=== PATIENT | male | born 1955 | race Caucasian/White ===

== ENCOUNTER 2018-12-14 12:22 | Inpatient (IN) | payer BC ==
[~2018-12-14] VITALS: Ht 188 cm; Wt 107.0 kg
--- NOTE | ~2018-12-14 | CON ---
[address] [address] CONSULTATION Name: JEWEL VELA Room: [address] IN .R.#: [id number] Admission: 12/14/18 Attend Phys: Rex Zendejas MD Discharge: Date of : 59 Report #: [id number] THIS REPORT FOR: //name// CC: Rex Ch MD DATE OF SERVICE: 12/15/2018 ONCOLOGY CONSULT NOTE The patient is being seen in consultation at the request of Dr. Zendejas because he has been shown to have an apple core like lesion in the ascending colon associated with numerous hepatic metastases on a CT scan, and these findings were first found on the CT scan done on 12/14/2018, ordered by Dr. Zendejas. 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 The patient said that he was told to come to the Emergency Room by someone from Dr. Ch's office. 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 The patient reports that over the past few months he has had more problems with constipation, i.e., passing a "rock hard" stool, and he typically has a bowel movement every day or every other day. He has not had any abdominal cramps nor overt bright red blood per rectum nor any melena. His appetite has been good and his weight has been stable. He does have nausea in the mornings, sometimes, but he has not had any vomiting. Importantly, the patient never before had had a colonoscopy. His sister at the age of 46 of colon cancer and it sounds as if she soon after diagnosis was made. No one else in the family has a history of colon cancer as far as he knows and no one has kidney cancer or tumors. The patient has had some dyspnea on exertion recently, but he has not had any chest pain, hemoptysis, or coughing. He does have some orthostatic vertigo with head turning or with body position changing (sitting to upright), but he has not had any loss of consciousness. His appetite is good and his weight is stable. He typically eats 3 meals a day and he has some snacks. He does not have a history of any bleeding tendencies or peptic ulcer disease. He denies any recent fever, rigors or drenching sweats. PAST MEDICAL HISTORY: Significant for diabetes, hypercholesterolemia, tonsillectomy when he was 21 years old, fractured right ribs in 2012, then fractured left ribs in 2012. Prostate gland enlargement at the age of 21 [place] [address] CONSULTATION Name: JEWEL VELA Room: [address] IN .R.#: [id number] Admission: 12/14/18 Attend Phys: Rex Zendejas MD Discharge: Date of : 59 Report #: [id number] resolved. SOCIAL HISTORY: He is and lives with his . 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 FAMILY HISTORY: The patient has one sister and he had one brother that was a at . He is a biological father of one son and one daughter with the daughter age 34. REVIEW OF SYSTEMS: Negative for any recent headaches, sudden episodes of visual loss, diplopia, shimmering lights, history of migraine headaches. No purulent nasal discharge. No sores in the mouth or swallowing difficulties. He denies any heartburn. He typically has nocturia once per night, but sometimes twice. He is right-handed gentleman who has back pain occasionally. It has been present since he was 21, and he takes aspirin for this once or twice per month. He also has some mild bilateral shoulder discomfort because of "calcium." He does not have any numbness or tingling in extremities. No history of skin cancer, malignant moles. He denies cough. PHYSICAL EXAMINATION: GENERAL: Reveals alert, pleasant gentleman in no acute distress. His and daughter are in the room and they stayed during the entire encounter. The patient was alert. His answers were all appropriate and crisp. HEENT: Pupils are equal. Sclerae were nonicteric. Extraocular movements were intact without nystagmus. He had no periorbital edema. Nasal passages were clear. Oropharynx revealed an edentulous mouth, but the buccal mucosa appeared healthy. He can open his mouth widely. The tongue protrudes in the midline to command and was normally papillated and I saw no tonsillar abnormalities. NECK: Reveals no carotid upstroke abnormalities and had no cervical lymphadenopathy. Voice quality was normal. He had no JVD or thyromegaly and there was no supraclavicular lymphadenopathy. There was no infraclavicular, axillary, or inguinal adenopathy. The posterior thorax was normal to inspection except for a large tattoo in the upper portion. He had no lumbosacral edema, worrisome subcutaneous nodules. CHEST: His cough was clear on command. There were no rales or wheezes in the posterior lora. Anteriorly, he had no spider telangiectasias over the upper anterior chest and there was no gynecomastia. HEART: His cardiac rate and rhythm were normal without murmur. ABDOMEN: Reveals significant obesity without tenderness, masses, ascites and no detectable hepatosplenomegaly, tested by palpation and percussion. There was no abdominal wall edema, no ascites. EXTREMITIES AND NEUROLOGIC: Lower extremities revealed no pitting edema or peripheral varicosities. Light touch was intact in the great toes and the fifth toes. Motor function testing was normal with regard to dorsiflexion, plantar flexion, eversion. His upper extremities revealed no acrocyanosis or palmar erythema or clubbing. He can make a tight clenched [place] [address] CONSULTATION Name: JEWEL VELA Room: [address] IN [facility]#: [id number] Admission: 12/14/18 Attend Phys: Rex Zendejas MD Discharge: Date of : 59 Report #: [id number] Wrist extension and elbow extensions were normal. MEDICAL DATA: From 12/14/2018, I reviewed the Emergency Room report dictated by geri and signed by Dr. Cerna (D.O.). From 12/14/2018., I reviewed the history and physical by Dr. Zendejas. From that same day, I reviewed the consultation note by Dr. Anamika Bone and signed by Dr. Damon, and from the same day, I reviewed the GI consult note by Dr. Salazar. From 2013, abdominal CT scan of the abdomen and pelvis with contrast was done because of abdominal pain and was said to be normal. From 12/14/2018, chest x-ray revealed no acute cardiopulmonary process. He did have healed right-sided rib fractures. From 12/14/2018, CT scan of the abdomen and pelvis with IV contrast revealed circumferential wall thickening in the right hemicolon and the ascending area consistent with an apple core lesion. There was a soft tissue extension. He had extensive periportal lymphadenopathy and innumerable hepatic metastases throughout the liver. Additionally, there was a peripherally enhancing soft tissue mass in the upper pole of the left kidney measuring 4.4 x 3.2 x 4.3 cm, and the radiologist felt that this likely represented renal cell carcinoma (until proven otherwise). There was no abdominal ascites. LABORATORY STUDIES: On admission showed normal electrolytes, BUN 13, creatinine 0.9, glucose 370. AST 157, ALT 296, alkaline phosphatase 504, total bilirubin 0.5. Albumin 2.8, total protein 7.2, calcium ___ and troponins were negative. TSH was normal at 0.415, serum iron 60, TIBC 444 with a 14% saturation. Ferritin was low at 15 ng/dL. Folic acid 42.7, vitamin B12 elevated at 1736. Hemoglobin 7, hematocrit 23.1%, MCV 66.7, RDW 25.3, platelet count 537,000. White blood cell count 8500 with 73% segmented neutrophils plus 14% lymphocytes, 11% monocytes, 2% eosinophils. Unfortunately, the patient has a picture most consistent with colon primary plus numerous hepatic metastases, i.e., stage IV disease, and I explained that to him. Colonoscopy has been arranged for tomorrow and I agree. I advised the patient's daughter that she should now have colonoscopy and so should her brother. I answered questions briefly about prognosis, saying of course that we did not have an established diagnosis yet. [address] [address] CONSULTATION Name: DANE,JEWEL Cannon Room: [address] IN [facility]#: [id number] Admission: 12/14/18 Attend Phys: Rex Zendejas MD Discharge: Date of : 59 Report #: [id number] The patient will be seen tomorrow by Dr. Hernandez. By: 1735 [id number] Conley MD /nt
[~2018-12-14 12:22] MED LIST: CELEXA 10 MG TA10 M1; JANUVIA25 MG; LOVASTAT40 PO; LOVASTATIN; METFORMIN HCL500 MG PO; PERCOCET 5-3251 EACH PO; [UNRECOGNIZED DRUG - OTHER]; [UNRECOGNIZED DRUG - OTHER]
[2018-12-14 12:30] VITALS: BP 128/77
[2018-12-14 13:06] LABS: NUCLEATED RBCS 0 /100WBC
[2018-12-14 13:08] LABS: HEMATOCRIT 23.1 % (42.0-52.0); MCH 20.1 pg (26.0-34.0); MCHC 30.2 g/dL (28.0-37.0); MCV 66.7 fL (80.0-100.0); MPV 7.5 fl. (7.2-11.1); PLATELET COUNT* 537 thou/uL (150-400); RBC 3.46 mil/uL (4.50-6.00); RDW-CV 25.3 % (10.5-14.5); WBC 8.5 thou/uL (4.0-11.0)
[2018-12-14 13:17] LABS: ANION GAP 11 mmol/L (7-16); BUN 13 mg/dL (7-18); CALCIUM 8.7 mg/dL (8.5-10.1); CHLORIDE 101 mmol/L (98-107); CO2 23 mmol/L (21-32); CREATININE 0.9 mg/dL (0.6-1.3); GLUCOSE 370 mg/dL (70-99); POTASSIUM 4.5 mmol/L (3.5-5.1); SODIUM 135 mmol/L (136-145)
[2018-12-14 13:26] LABS: ALBUMIN 2.8 g/dL (3.4-5.0); ALKALINE PHOSPHATASE 504 U/L (46-116); SGOT 157 U/L (15-37); SGPT 296 U/L (30-65); TOTAL BILIRUBIN 0.5 mg/dL (<0.1-1.0); TOTAL PROTEIN 7.2 g/dL (6.4-8.2); TROPONIN-I LEVEL <0.06 ng/mL (<0.06)
[2018-12-14 14:04] LABS: ABSOLUTE EOSINOPHILS 0.2 thou/uL (0.0-0.7); ABSOLUTE LYMPHOCYTES 1.2 thou/uL (0.8-5.3); ABSOLUTE MONOCYTES 0.9 thou/uL (0.0-1.2); ABSOLUTE NEUTROPHILS 6.2 thou/uL (1.6-8.1); HYPOCHROMASIA 2+; MICROCYTES 2+; OVALOCYTES 1+; PLATELET ESTIMATE INCREASED; POLYCHROMASIA 2+
[2018-12-14 14:05] LABS: ANISOCYTOSIS 2+; POIKILOCYTOSIS 2+; TARGET CELLS 1+
--- NOTE | 2018-12-14 15:06 | NUR ---
NURSE WENT DOWN TO BLOOD BANK AT 1453, PICKED UP BLOOD PRODUCTS FOR PT. BLOOD TRANSFUSION STARTED AT 1504. SECOND WITNESS IVANNA Herrera RN AT BEDSIDE. BLOOD TRANSFUSION STARTED AT 75 ML/HR. THIS NURSE AT BEDSIDE AT THIS TIME.
[2018-12-14] MEDS ORDERED: GLIMEPIRIDE2 MG PO (15:27)
[2018-12-14] MEDS ORDERED: LAMICTAL XR100 MG PO (15:27)
[2018-12-14] MEDS ORDERED: ESCITALOPRAM OX20 MG PO (15:28)
[2018-12-14] MEDS ORDERED: NEURONTIN 300300 M1 PO (15:29)
[2018-12-14] MEDS ORDERED: LISINOPRIL5 MG PO (15:29)
--- NOTE | 2018-12-14 15:40 | NUR ---
REPORT GIVEN TO JULIETH GAMBOA WHO IS TO ASSUME PT CARE INPATIENT NURSE.
[2018-12-14 15:44] VITALS: BP 123/75
[2018-12-14 16:42] VITALS: BP 123/72
--- NOTE | 2018-12-14 16:52 | NUR ---
RECEIVED REPORT FROM KATARINA IN ED AND ASSUMED CARE OF PT @ 1600.PT IS A/O X4,VSS,TRACING SR ON THE MONITOR.PT REMAINS ON ROOM AIR.IV PATENT WITH BLOOD INFUSING PER PROTOCOL-NO COMPLICATIONS.NO C/O PAIN.PT IS CALM AND COOPERATIVE WITH CALL LIGHT WITHIN REACH.WILL CONTINUE TO MONITOR.
--- NOTE | 2018-12-14 17:16 | NUR ---
VSS.HARNESS PULLER IN PLACE WITH NO CHANGES.IV PATENT WITH BLOOD INFUSING PER ORDERS.PT INFORMED OF PLAN OF CARE AND COMMUNICATES UNDERSTANDING.HOURLY ROUNDING COMPLETED FOR PT SAFETY.CALL LIGHT WITHIN REACH.WILL CONTINUE TO MONITOR FOR DURATION OF SHIFT.
[2018-12-14 19:36] LABS: HEMATOCRIT 25.4 % (42.0-52.0); HEMOGLOBIN 7.8 gm/dL (14.0-18.0)
[2018-12-14 19:55] VITALS: BP 131/77
[2018-12-15] VITALS (7 sets, daily range): BP systolic 114–135; BP diastolic 63–75
--- NOTE | 2018-12-15 04:50 | NUR ---
ASSUMED CARE OF PT AT 1900. PT IS ALERT AND ORIENTED. VSS. PERRLA. NO COMPLAINTS OF PAIN. STEADY GAIT. PT IS IN SINUS RYTHM ON THE TELEMETRY. PT IS RESTING COMFORTABLY IN BED. RESPIRATIONS ARE EVEN AND NONLABORED. WILL CONTINUE TO MONITOR PT.
[2018-12-15 05:01] LABS: ALBUMIN 2.7 g/dL (3.4-5.0); CREATININE 0.8 mg/dL (0.6-1.3); POTASSIUM 4.3 mmol/L (3.5-5.1)
[2018-12-15 05:18] LABS: PREALBUMIN 17.7 mg/dL (18.0-35.7)
[2018-12-15 05:44] LABS: MCHC 30.2 g/dL (28.0-37.0); NUCLEATED RBCS 0 /100WBC; RDW-CV 25.7 % (10.5-14.5)
[2018-12-15 05:46] LABS: ABSOLUTE BASOPHILS 0.1 thou/uL (0.0-0.2); ABSOLUTE EOSINOPHILS 0.2 thou/uL (0.0-0.7); ABSOLUTE LYMPHOCYTES 3.2 thou/uL (0.8-5.3); ABSOLUTE MONOCYTES 0.7 thou/uL (0.0-1.2); ABSOLUTE NEUTROPHILS 5.9 thou/uL (1.6-8.1); BASOPHILS 0.6 %; EOSINOPHILS 1.8 %; HEMATOCRIT 26.1 % (42.0-52.0); HEMOGLOBIN 7.9 gm/dL (14.0-18.0); LYMPHOCYTES 31.6 %; MCH 20.9 pg (26.0-34.0); MCV 69.1 fL (80.0-100.0); MONOCYTES 7.2 %; PLATELET COUNT* 519 thou/uL (150-400); POLYS 58.8 %; RBC 3.78 mil/uL (4.50-6.00)
--- NOTE | 2018-12-15 08:47 | NUR ---
RECEIVED REPORT FORM KIT AND ASSUMED CARE OF PT @ 7312.PT IS A/O X4,VSS,TRACING SR ON THE MONITOR.IV PATENT AND SALINE LOCKED.PT IS CALM AND COOPERATIVE WITH NO C/O PAIN.PT IS UP AD POONAM IN THE ROOM.CALL LIGHT WITHIN REACH.WILL CONTINUE TO MONITOR.
[2018-12-15 09:14] LABS: MICROCYTES 2+; PLATELET ESTIMATE INCREASED
[2018-12-15 09:19] LABS: TARGET CELLS 1+
[2018-12-15 09:30] LABS: HYPOCHROMASIA 2+; OVALOCYTES Occasional
[2018-12-15 12:38] LABS: AMP/METHAMP Negative (Negative); BARBITURATES Negative (Negative); BENZODIAZEPINES Negative (Negative); COCAINE Negative (Negative); METHADONE Negative (Negative); OPIATES Negative (Negative); PCP Negative (Negative); THC Negative (Negative)
--- NOTE | 2018-12-15 17:55 | NUR ---
VSS.CARDIAC MONITORING IN PLACE WITH NO CHANGES.PT REMAINS ON ROOM AIR.NO C/O PAIN.PT HAS C/O NAUSEA WITH MEDICATIONS GIVEN.IV PATENT AND SALINE LOCKED.PT ON CLEAR LIQUID DIET AND WILL BE NPO AT MIDNIGHT FOR COLONSCOPY TOMORROW.BOWEL PREP STARTED.PT INFORMED OF PLAN OF CARE AND COMMUNICATES UNDERSTANDING.HOURLY ROUNDING COMPLETED FOR PT SAFETY.CALL LIGHT WITHIN REACH.WILL CONTINUE TO MONITOR FOR DURATION OF SHIFT.
[2018-12-16] VITALS (9 sets, daily range): BP systolic 116–142; BP diastolic 41–77
[2018-12-16 04:16] LABS: HEMOGLOBIN 7.5 gm/dL (14.0-18.0); MCH 20.6 pg (26.0-34.0); NUCLEATED RBCS 0 /100WBC
[2018-12-16 04:21] LABS: ABSOLUTE BASOPHILS 0.1 thou/uL (0.0-0.2); ABSOLUTE LYMPHOCYTES 2.1 thou/uL (0.8-5.3); ABSOLUTE MONOCYTES 1.3 thou/uL (0.0-1.2); ABSOLUTE NEUTROPHILS 8.1 thou/uL (1.6-8.1); BASOPHILS 0.5 %; EOSINOPHILS 0.4 %; HEMATOCRIT 24.9 % (42.0-52.0); MCHC 30.1 g/dL (28.0-37.0); MCV 68.6 fL (80.0-100.0); MONOCYTES 11.5 %; MPV 7.8 fl. (7.2-11.1); PLATELET COUNT* 459 thou/uL (150-400); POLYS 69.6 %; RBC 3.63 mil/uL (4.50-6.00); RDW-CV 25.7 % (10.5-14.5); WBC 11.7 thou/uL (4.0-11.0)
[2018-12-16 04:27] LABS: PREALBUMIN 15.7 mg/dL (18.0-35.7)
[2018-12-16 04:28] LABS: ALBUMIN 2.6 g/dL (3.4-5.0); CALCIUM 8.6 mg/dL (8.5-10.1); CREATININE 0.7 mg/dL (0.6-1.3); POTASSIUM 4.8 mmol/L (3.5-5.1); TOTAL BILIRUBIN 1.9 mg/dL (<0.1-1.0); TOTAL PROTEIN 6.8 g/dL (6.4-8.2)
--- NOTE | 2018-12-16 05:52 | NUR ---
PT CARE ASSUMED AT 1930. SAT MAINTAINED IN RA. ALERT AND ORIENTED X4. C/O NAUSEA, MEDICATION GIVEN PER EMAR. CALL LIGHT WITHIN REACH AND BED IN LOW POSITION.
[2018-12-16 09:52] LABS: APTT 26.3 Seconds (25.0-31.3); PROTIME 10.4 Seconds (9.20-11.50)
--- NOTE | 2018-12-16 10:35 | NUR ---
Pt is A&O. 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 Pt has a new CA dx, stage 4 colon with a spot on his liver and kidneys. Pt scheduled to have a colonoscopy today and a colon and liver bx. No DME. No hx of HH or SNF. Goal is home at dc. Following for dc needs.
--- NOTE | 2018-12-16 12:20 | EKG ---
[place] [address] ELECTROCARDIOGRAM REPORT Name: JEWEL VELA Room: [address] ADM IN ..#: [id number] Admission: 12/14/18 Attend Phys: Rex Zendejas MD Discharge: Date of : 59 Report #: [id number] THIS REPORT FOR: //name// [facility] ED Test Date: 2018-12-14 Test Time: 13:03:06 Pat Name: JEWEL VELA Department: Room: [facility] Gender: M Slotter Operator: : 1955 Requested By: Martin Cerna Order Number: [id number] MD: Deangelo Leyva Measurements Intervals [place] Rate: 88 P: 37 PA: 166 QRS: 23 QRSD: 111 T: -1 QT: 367 QTc: 444 Interpretive Statements Sinus rhythm Abnormal R-wave progression, early transition Compared to ECG 06/07/2013 13:38:08 ST (T wave) deviation no longer present Electronically Signed On 12-16-2018 12:20:41 CDT by Deangelo Leyva [email or web address] <ELECTRONICALLY SIGNED> By: Deangelo Leyva MD, [facility] 12/16/18 1220 1303 1303 Deangelo Leyva MD, [facility] /EPI
[2018-12-16 13:09] LABS: HEPATITIS B SURFACE AG Negative (Negative)
--- NOTE | 2018-12-16 16:05 | NUR ---
Nutrition: screen has pt wt of 114 lb, BMI 14.7. However admit wt 252 lb and appears wt in kg may have been entered as pounds. Pt did not risk on nsg assesement screen. RN to reweigh pt today after procedure.
--- NOTE | 2018-12-16 18:58 | NUR ---
ASSUMED CARE OF PT APPROX 0730. ASSESSMENT COMPLETED CHARTED THIS AM. PT WAS OFF UNIT FOR PROCEDURES THIS AM AND INTO THE AFTERNOON. PT CAME BACK TO THE FLOOR AT APPROX 1515. PT EDUCATION DONE ABOUT POST OP PT POSITON. POST OP VITALS COMPLETED CHARTED. MEDICATIONS GIVEN CHARTED. PT HAS BEEN LYING ON RT SIDE AND HAS BEEN UP TO THE BATHROOM X2 POST PROCEDURE. PT NEEDS MET. PERSONAL ITEMS AND CALL LIGHT WITHIN REACH AT THIS TIME.
--- NOTE | 2018-12-16 19:02 | NUR ---
I HAVE REVIEWED AND AGREE WITH THE ASSESMENT OF STEVE Jennings RN ON 12/16/18
[2018-12-17] VITALS (7 sets, daily range): BP systolic 96–135; BP diastolic 45–76
[2018-12-17 04:31] LABS: ABSOLUTE LYMPHOCYTES 1.7 thou/uL (0.8-5.3); ABSOLUTE MONOCYTES 1.5 thou/uL (0.0-1.2); BASOPHILS 0.2 %; EOSINOPHILS 0.2 %; HEMATOCRIT 24.9 % (42.0-52.0); HEMOGLOBIN 7.6 gm/dL (14.0-18.0); LYMPHOCYTES 14.1 %; MCHC 30.3 g/dL (28.0-37.0); MONOCYTES 12.4 %; MPV 8.2 fl. (7.2-11.1); NUCLEATED RBCS 0 /100WBC; PLATELET COUNT* 447 thou/uL (150-400); POLYS 73.1 %; RBC 3.61 mil/uL (4.50-6.00); RDW-CV 25.8 % (10.5-14.5); WBC 12.3 thou/uL (4.0-11.0)
[2018-12-17 05:01] LABS: ALBUMIN 2.5 g/dL (3.4-5.0); CALCIUM 8.9 mg/dL (8.5-10.1); CREATININE 0.8 mg/dL (0.6-1.3); POTASSIUM 4.2 mmol/L (3.5-5.1); TOTAL BILIRUBIN 2.1 mg/dL (<0.1-1.0); TOTAL PROTEIN 7.1 g/dL (6.4-8.2)
[2018-12-17 05:45] LABS: HYPOCHROMASIA 2+; MICROCYTES 2+; PLATELET ESTIMATE INCREASED
[2018-12-17 05:46] LABS: ANISOCYTOSIS 2+; POIKILOCYTOSIS 1+; POLYCHROMASIA 1+; TARGET CELLS Occasional
--- NOTE | 2018-12-17 07:03 | NUR ---
PT CARE ASSUMED AT 1930. SAT MAINTAINED IN
--- NOTE | 2018-12-17 07:40 | NUR ---
PT CARE ASSUMED AT 1930. SAT MAINTAINED IN RA. ALERT AND ORIENTED X4. CALL LIGHT WITHIN REACH AND BED IN LOW POSITION. C/O PAIN, MEDICATION GIVEN PER EMAR. HOURLY ROUNDING DONE FOR PT SAFETY.
--- NOTE | 2018-12-17 08:45 | NUR ---
ASSUMED CARE OF PT THIS AM AROUND 0715- CSR IN PLACE ORDERED, TRACING SR/BBB- UPON ASSESSMENT PT NOTED TO BE RESTING IN BED, AT SIDE- PT A&O X4- CONTINENT OF BOWEL AND BLADDER- UP AD-POONAM IN ROOM, STEADY GAIT NOTED- LCTA, RESP EVEN AND UN-LABORED- VSS, O2 SAT 96% ON RA- ABD SOFT/ROUND/NON-TENDER, BS X4 QUADS- LAST BM REPORTED 12/16/18- IV NOTED TO RIGHT FA INTACT AND SL- GOOD PO INTAKE NOTED THIS AM WITH BREAKFAST, BS MONITORED ORDERED, SSI PRESCIBED- PLANS FOR PORT-ACATH PLACEMENT 12/18/18, TO BE NPO AT MIDNIGHT- DENIES ANY C/O PAIN THIS AM- MAKES NEEDS KNOWN- ALL NEEDS MET AT THIS TIME-WCTM
--- NOTE | 2018-12-17 16:03 | NUR ---
PT CURRENTLY RESTING IN BED- CORPORATE DEVELOPMENT ASSOCIATE CONTINUED ORDERED, TRACING SR- IV TO RIGHT FA INTACT AND SL- GOOD PO INTAKE NOTED THIS SHIFT WITH MEALS, BS MONITORED ORDERED, SSI PRESCIBED-PT TO BE NPO AT MIDNIGHT FOR PLANNED PORT PLACEMENT ON 11/18/18- PT MAKES NEEDS KNOWN- ALL NEEDS MET AT THIS TIME- WCTM
[2018-12-18 05:30] LABS: PROTIME 10.3 Seconds (9.20-11.50)
[2018-12-18 05:36] LABS: HEMOGLOBIN 7.5 gm/dL (14.0-18.0)
[2018-12-18 05:43] LABS: HEMATOCRIT 24.6 % (42.0-52.0); MCHC 30.5 g/dL (28.0-37.0); MCV 68.7 fL (80.0-100.0); MPV 8.3 fl. (7.2-11.1); NUCLEATED RBCS 0 /100WBC; PLATELET COUNT* 434 thou/uL (150-400); RBC 3.59 mil/uL (4.50-6.00); RDW-CV 25.8 % (10.5-14.5); WBC 9.2 thou/uL (4.0-11.0)
[2018-12-18 05:51] LABS: ALBUMIN 2.3 g/dL (3.4-5.0); CALCIUM 8.9 mg/dL (8.5-10.1); CREATININE 0.8 mg/dL (0.6-1.3); MAGNESIUM 1.9 mg/dL (1.8-2.4); PHOSPHORUS* 2.7 mg/dL (2.5-4.9); POTASSIUM 3.9 mmol/L (3.5-5.1); TOTAL BILIRUBIN 1.7 mg/dL (<0.1-1.0)
[2018-12-18 06:03] LABS: ABSOLUTE BASOPHILS 0.1 thou/uL (0.0-0.2); ABSOLUTE LYMPHOCYTES 1.4 thou/uL (0.8-5.3); ABSOLUTE MONOCYTES 0.9 thou/uL (0.0-1.2); ABSOLUTE NEUTROPHILS 6.8 thou/uL (1.6-8.1)
[2018-12-18 06:04] LABS: HYPOCHROMASIA 2+; MICROCYTES 2+; PLATELET ESTIMATE INCREASED; POLYCHROMASIA 1+; TARGET CELLS Occasional
[2018-12-18 06:05] LABS: ANISOCYTOSIS 2+; POIKILOCYTOSIS 1+
--- NOTE | 2018-12-18 07:53 | NUR ---
PT CARE ASSUMED AT 1930. SAT MAINTAINED IN RA. ALERT AND ORIENTED X4. CALL LIGHT WITHIN REACH AND BED IN LOW POSITION. DENIES PAIN AND SOB. HOURLY ROUNDING DONE FOR PT SAFETY.
[2018-12-18 08:00] VITALS: BP 129/70
[2018-12-18 11:49] VITALS: BP 127/50
--- NOTE | 2018-12-18 12:07 | NUR ---
Pt completed DPOA, copy on Pt's chart
[2018-12-18 16:50] VITALS: BP 145/71
--- NOTE | 2018-12-18 17:06 | PATH ---
[facility] [address] [place] [address] PATHOLOGY RPT PROCEDURE Name: TARIQ VELA Room: [address] IN .R.#: [id number] Admission: 12/14/18 Date of : 59 Discharge: Report #: [id number] Path Case #: [id number] [facility] Accession Number: [id number] . 01 Material submitted: . liver - LIVER BIOPSY . 01 Clinical history: . None provided . 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 SEE COMMENT. (DIANA:pit; 12/18/2018) QTP/12/18/2018 . 02 Comment: Multiple nests of high-grade adenocarcinoma, showing very little glandular differentiation and abundant tumor necrosis are seen in association with non-neoplastic liver tissue. A panel of properly controlled immunohistochemical studies performed on A1 shows the neoplastic cells to have the following characteristics, supporting the diagnosis. CK7: Focal positive/mostly negative CK20: Positive CDX2: Positive TTF-1: Negative PAX-8: Negative CD10: Equivocal positive . The descending colon mass biopsy of an apple core lesion ([id number]) appears histologically identical. . Reviewed with Dr. Lester Beal who agrees with the diagnosis. Dr. Coe notified at approximately 1410 on 12/18/2018. (DIANA:pit; 12/18/2018) . 02 Electronically signed: . Ferny Mora MD, Pathologist NPI- [id number] . 01 Gross description: . Received in formalin labeled "Tariq Vela," and additionally labeled on the requisition as "liver biopsy," are multiple fragments of needle cores of juarez soft tissue measuring 0.8 x 0.5 x 0.1 cm in aggregate dimensions. The specimen is filtered and entirely submitted in cassette A1. (TSD; 12/16/2018) [place] [address] PATHOLOGY RPT PROCEDURE Name: TARIQ VELA Room: [address] IN [facility]#: [id number] Admission: 12/14/18 Date of : 59 Discharge: Report #: [id number] Path Case #: [id number] TOB/TOB . 02 Pathologist provided ICD-10: C22.9 . 02 CPT . 077256, H83611, Q52801 Specimen Comment: A courtesy copy of this report has been sent to Specimen Comment: [phone], , . Specimen Comment: Report sent to DR CRAWFORD,DR HUTCHINSON / DR COE Performed at: [address], [place], [place] [address] MD Fortunato Hinojosa MD Phone: [phone] Performed at: 02 [facility] [address], [place], [place] [id number] MD Ferny Mora MD Phone: [phone]
[2018-12-18] MEDS ORDERED: LEXAPRO 10 MG T10 MG (17:59)
[2018-12-18 18:00] VITALS: BP 145/71
--- NOTE | 2018-12-18 18:49 | NUR ---
ASSUMED CARE OF PT APPROX 0730. PT ASSESSMENT COMPLETED CHARTED. PT WENT TO PROCEDURE THIS AFTERNOON AND RETURNED TO UNIT APPROX 1650. PT HAS BEEN UP TO BATHROOM WITH STAND BY ASSISTANCE. CAROLINARY ROUNDING COMPLETED. MEDICATIONS GIVEN CHARTED. PT TO BE DC THIS EVENING TO HOME.
--- NOTE | 2018-12-18 19:30 | NUR ---
I have reviewed and agree with the charting and notes of Prabha Jennings RN on 12/18/18. Results of pathology report called to sima Hinds with DC today. Pt having minimal pain post port placement. meds given per aug. pt given discharge instructions, reviewed meds to resume at home and follow up appointments to make as well as s/s of infection to watch for. pt and verbalized understanding of education. pt dc'd at approx 1920
--- NOTE | 2018-12-18 19:40 | NUR ---
PT DISCHARGE TEACHING COMPLETED. PT VERBALIZED UNDERSTANDING. PT ESCORTED BY STAFF TO CAR AT 1910.
--- NOTE | 2018-12-19 08:04 | OP ---
[facility] [address] [place] [address] OPERATIVE REPORT Name: JEWEL VELA Room: [address]#: [id number] Admission: 12/14/18 Attend Phys: Rex Zendejas MD Discharge: 12/18/18 Date of : 59 Report #: [id number] THIS REPORT FOR: //name// CC: Rex Ch MD DICTATED BY: Anamika Bone DO DATE OF SERVICE: 12/18/2018 PREOPERATIVE DIAGNOSIS: Cancer. POSTOPERATIVE DIAGNOSIS: Cancer. PROCEDURE PERFORMED: Left internal jugular vein ultrasound and fluoroscopic-guided chemo port placement. PRIMARY SURGEON: Starr Damon DO EXERCISE PLANNER: Anamika Bone DO, PGY2 SECOND EXERCISE PLANNER: Dr. Ghulam Álvarez DO, PGY5. ANESTHESIA: General and local. ESTIMATED BLOOD LOSS: 5 mL. FINDINGS: Normal vascular anatomy. COMPLICATIONS: None. INDICATION FOR PROCEDURE: The patient is a pleasant 62-year-old gentleman that presented to the hospital with complaint of fatigue and abnormal lab results. He had been feeling weak and dizzy off and on for nearly a year, but his symptoms have become worse over the last 6 weeks. Upon workup, in the Emergency Room Department, he was found to have metastatic cancer lesions in the liver, probable colon mass as well as a possible renal cell carcinoma. He will need a chemo port for chemotherapy. Procedure, risks, benefits, possible complications to include bleeding, infection, pneumothorax, vascular injury, anesthesia risks, and other risks of surgery were all discussed with the patient in detail. He voiced complete understanding and wished to proceed. DESCRIPTION OF PROCEDURE: Informed consent was obtained. The patient was taken to the operating room and placed supine on the operating room table. General anesthesia was induced without difficulty. [place] [address] OPERATIVE REPORT Name: JEWEL VELA Room: [address]#: [id number] Admission: 12/14/18 Attend Phys: Rex Zendejas MD Discharge: 12/18/18 Date of : 59 Report #: [id number] SCDs were placed on bilateral lower extremities. The patient's arms were tucked at his side. He was then placed in Trendelenburg. Ultrasound was used to identify the left internal jugular vein. It appeared widely patent and easily compressible. The patient's left neck was then prepped and draped in the standard sterile fashion and timeout was performed to ensure correct patient and procedure. Ultrasound was draped with a sterile drape. Ultrasound was again used to identify the left internal jugular vein. Again, normal vascular anatomy was observed. We began by injecting approximately 5 mL of 0.5% Marcaine where we plan access the left internal jugular vein. The left internal jugular vein was then accessed under ultrasound guidance using 18 gauge finder needle with one pass of the needle. Dark venous blood return was noted. The syringe was removed and the guidewire was then passed without difficulty. Needle was removed. C-arm was then brought in to obtain imaging. It appeared at this point that our guidewire had curved into the subclavian vein instead of advancing into the superior vena cava. An attempt was made under fluoroscopy to retract the wire and advanced it in the correct direction. After several attempts, we elected to remove our wire. Then we accessed the left internal jugular vein. Again under ultrasound guidance, the left internal jugular vein was accessed with one pass of the 18 gauge finder needle. The guidewire was readvanced without difficulty. The needle was removed. Again, C-arm was brought back in to obtain fluoroscopic imaging. At this time, our wire did appear to be in correct position in the superior vena cava. The wire was stabilized. We then turned our attention to the left chest the infraclavicular region. We injected approximately 10 mL of 0.5% Marcaine in the infraclavicular region. A 3 cm horizontal incision was made in the midclavicular line just below the clavicle using a #15 blade scalpel. Incision was carried down through the subcutaneous tissue using electrocautery, dissected down to the level deep subcutaneous tissue in the level of the pectoralis fascia. A blunt dissection was used to form a pocket for the port to be placed. Once we were successful forming a pocket, we returned our attention to the left neck. A small rosetta incision was made just adjacent to the wire using a #11 blade scalpel. Our dilator with Peel-Apart Introducer was advanced over our wire without difficulty. The dilator and wire were then easily removed. Finger was placed over the opening of the Peel-Apart Introducer. At this point, we advanced our catheter through the Peel-Apart Introducer. We then brought in the C-arm to ensure that our catheter was in correct position. The catheter appeared to be in the right atrium. Under fluoroscopic guidance, we backed our catheter up until it was in satisfactory position in the superior vena cava. A C-arm was backed away. The Peel-Apart Introducer was then broken and peeled apart, removed. The wire within the catheter was removed. Catheter was then attached to the end of our tunneling device. The tunneling device was used to tunnel through the subcutaneous tissue from our small rosetta incision at the left neck into the superior aspect of our pocket for our port and catheter was brought through. A final fluoroscopic image was obtained at this point to ensure that our catheter was still in good position in the superior vena cava, seeing that it remained in good position. C-arm was backed away. [place] [address] OPERATIVE REPORT Name: JEWEL VELA Room: [address]#: [id number] Admission: 12/14/18 Attend Phys: Rex Zendejas MD Discharge: 12/18/18 Date of : 59 Report #: [id number] catheter to satisfactory length and attached it to the port in the standard fashion. Our port was then accessed with a Ulrich needle and dark venous blood was easily aspirated. We then flushed with approximately 5 mL of injectable saline. Port was then flushed with 3 mL of heparin solution. Using a 2-0 Prolene suture, we sutured our port into our pocket, anchoring it to the pectoralis fascia in 2 positions. Our incision was then closed. Subcutaneous tissue was closed using 3-0 Vicryl suture in a simple interrupted and inverted fashion. The skin was closed using 4-0 Monocryl suture in a running subcuticular fashion. The small rosetta incision at the left neck was also closed using 4-0 Monocryl suture in interrupted and inverted fashion. The left neck was cleansed and dried. Sterile dressings were applied using Mastisol, Steri-Strips, 4 x 4's, and Tegaderms. The patient tolerated the procedure well. He was allowed to awaken in the operating room and was transferred to the PACU in stable condition with plans for a postoperative chest x-ray to ensure good position. <ELECTRONICALLY SIGNED> By: Starr Damon DO 12/19/18 0804 [id number] Damon DO /nt
--- NOTE | 2018-12-19 15:07 | PATH ---
[address] [address] PATHOLOGY RPT PROCEDURE Name: TARIQ VELA Room: [address] IN .R.#: [id number] Admission: 12/14/18 Date of : 59 Discharge: 12/18/18 Report #: [id number] Path Case #: [id number] [facility] Accession Number: [id number] . 01 Material submitted: . colon - BIOPSY - DESCENDING COLON MASS. Modifiers: descending . 01 Clinical history: . None provided . 02 Diagnosis: Biopsy descending colon mass: - HIGH-GRADE ADENOCARCINOMA WITH MEDULLARY FEATURES, SHOWING PROMINENT TUMOR NECROSIS. SEE COMMENT. . (DIANA:[facility]; 12/18/2018) QMS/12/18/2018 . 02 Comment: The tumor is histologically identical to that seen in the liver biopsy ([id number]). Reviewed with Dr. Lester Beal who agrees with the diagnosis. Per notification and request of Dr. Salazar at approximately 1615 on 12/18/2018, MMR/MSI testing will be performed and an addendum report will be issued. (DIANA:[facility]; 12/18/2018) . 02 Addendum: . MICROSATELLITE INSTABILITY REPORT (MSI): . At the request of Dr. Salazar, mismatch repair (MMR) protein immunohistochemical staining was performed. . Specimen: Formalin fixed paraffin embedded tissue Specimen ID: [id number], A1. Reason for testing: To evaluate for evidence of defective mismatch repair proteins. Method: Immunohistochemical staining for the presence or absence of protein expression of one or more of the following MMR protein markers: MLH1, MSH2, MSH6 and PMS2. Tumor type: High-grade adenocarcinoma . Results: MLH1 - Preserved MSH2 - Preserved MSH6 - Preserved PMS2 - Preserved . Mismatch Repair Status:MMR Proficient (MMR-P) [place] [address] PATHOLOGY RPT PROCEDURE Name: TARIQ VELA Room: [address] IN [facility]#: [id number] Admission: 12/14/18 Date of : 59 Discharge: 12/18/18 Report #: [id number] Path Case #: [id number] . Interpretation: . All four MMR proteins are preserved within tumor cells. This suggests the presence of normal DNA mismatch repair function within the tumor and an observable defect in mismatch repair is not identified. The likelihood that this patient has an inherited germline mutation syndrome due to defective mismatch repair is reduced but not totally eliminated. If the patient has a strong personal or family history of HPNCC/Wood syndrome related cancers (colorectal, endometrial, gastric, ovarian, pancreatic, ureter/renal pelvis, biliary tract, brain, small bowel and Mara-Shade syndrome), consider MSI testing by PCR methodology. Suggest clinical correlation and follow up. . These test results are designed for screening purposes only and are useful tools in identifying cancer patients that are more likely to have Wood Syndrome related diagnoses. Tests should be interpreted in the context of clinical findings, family history and laboratory data. Abnormal IHC results for MMR protein expression are not considered diagnostic for Wood Syndrome. . (DIANA:[facility]; 12/19/2018) . . Professional services performed by [employer] at [facility], [address] [place] [address]., [place] [address]. Technical services performed by [employer] at [address] [place] [address], [address], [place] [address]. S/12/19/2018 Addendum Electronically Signed by Ferny Mora MD, Pathologist . 02 Electronically signed: . Ferny Mora MD, Pathologist NPI- [id number] . 01 Gross description: . Received in formalin labeled "Tariq Vela, biopsy-descending colon mass," are three segments of pale juarez soft tissue measuring 0.5 x 0.4 x 0.2 cm in aggregate dimensions and ranging from 0.2 to 0.4 cm in maximum dimension. The specimen is submitted entirely in cassette A1. ([facility]; 12/17/2018) XDC/XDC . 02 Pathologist provided ICD-10: C18.6 . 02 CPT . 300446, J48421, Z59382 Specimen Comment: A courtesy copy of [place] [address] PATHOLOGY RPT PROCEDURE Name: TARIQ VELA Room: [address] IN ..#: [id number] Admission: 12/14/18 Date of : 59 Discharge: 12/18/18 Report #: [id number] Path Case #: [id number] Specimen Comment: [phone], , . Specimen Comment: Report sent to ,DR COE / DR HUTCHINSON Performed at: [address], [place], [place] [id number] MD Fortunato Hinojosa MD Phone: [phone] Performed at: [address] [facility] [address], [place], [place] [id number] MD Ferny Mora MD Phone: [phone]
--- NOTE | 2018-12-19 20:16 | CON ---
[address] [address] CONSULTATION Name: JEWEL VELA Room: [address] IN .R.#: [id number] Admission: 12/14/18 Attend Phys: Rex Zendejas MD Discharge: 12/18/18 Date of : 59 Report #: [id number] THIS REPORT FOR: //name// CC: Rex Ch HISTORY OF PRESENT ILLNESS: This is a pleasant 62-year-old gentleman with past medical history of diabetes and hyperlipidemia, who is presenting for evaluation of weakness. The patient was referred by his primary care provider as he was found to be anemic. The patient denies any other particular symptoms apart from dyspnea on exertion and weakness. He denies any nausea, vomiting, diarrhea, hematemesis or hematochezia. He reports his weight has been unchanged over the last few months. The patient has never had a colonoscopy so far. PAST MEDICAL HISTORY: As mentioned above. The patient has a known history of diabetes and hyperlipidemia. PAST SURGICAL HISTORY: The patient has a remote history of tonsillectomy and adenoidectomy. SOCIAL HISTORY: The patient denies smoking, alcohol or recreational drug use. FAMILY HISTORY: Significant for colon cancer in his sister at age 46. REVIEW OF SYSTEMS: A comprehensive 10-point review of systems is negative except for what was mentioned in the HPI. PHYSICAL EXAMINATION: VITAL SIGNS: Temperature 36.6, pulse rate 88 and blood pressure 131/73. GENERAL: The patient is alert, awake and oriented x 3. HEENT: Pupils are equal, round and reactive to light and accommodation. Mucous membranes are moist. There is no congestion. LUNGS: Clear to auscultation bilaterally. CARDIOVASCULAR: Rate and rhythm regular. S1, S2 present. ABDOMEN: Soft. There is no significant distention, guarding or rigidity. EXTREMITIES: Warm and well perfused. There is no edema. SKIN: Warm and dry. LABORATORY DATA: Hemoglobin 7.9, hematocrit 26.1, WBC count 10 and platelet count 519. Sodium 142, potassium 4.3, chloride 105, bicarbonate 26, BUN 10, creatinine 0.8, total bilirubin 1, AST 163, ALT [address] abdomen and pelvis, apical core-type lesion in the ascending colon with pericolonic mass also present at the level of the apical core, lesions are multiple hepatic periportal metastasis, findings concerning for colon carcinoma with metastatic disease to the liver; right upper pole renal cell carcinoma also suspected, this could be an incidental finding; gallbladder wall thickening circumferentially, probably due [place] [address] CONSULTATION Name: JEWEL VELA Room: [address] IN M..#: [id number] Admission: 12/14/18 Attend Phys: Rex Zendejas MD Discharge: 12/18/18 Date of : 59 Report #: [id number] ASSESSMENT AND PLAN: A pleasant 62-year-old gentleman with a family history of early colon cancer, who is presenting for evaluation of anemia. The patient unfortunately, appears to have a mass in the ascending colon. We will need to perform colonoscopy for further evaluation. Elevated liver enzymes. Suspect the elevated liver enzymes are due to metastatic disease that was noted on the CT scan. No further evaluation is recommended at this stage. Oncology and Surgical consults have been placed. I advised the patient that his children should get colonoscopy for colon cancer screening starting at age 40. His son appears to be 42. All the patient's questions were answered to his satisfaction. <ELECTRONICALLY SIGNED> By: Helder Salazar MD 12/19/182015 0956 1845Helder Salazar MD /nt
== END 2018-12-18 19:10 | disposition home or self-care (01) | DRG 374 ==
LOC: M.ERS 12:22 → M.2W 14:12 → M.TBA-ER 14:12 → M.2W 16:03
PROVIDERS: Emergency Medicine Emergency Medical Services; Radiology Diagnostic Radiology; Surgery; ADMIT Internal Medicine
DX: C18.9 Malignant neoplasm of colon, unspecified (principal); E11.00 Type 2 diabetes mellitus with hyperosmolarity without nonketotic hyperglycemic-hyperosmolar coma (NKHHC); E44.0 Moderate protein-calorie malnutrition; D50.9 Iron deficiency anemia, unspecified; E78.00 Pure hypercholesterolemia, unspecified; E80.6 Other disorders of bilirubin metabolism; F32.9 Major depressive disorder, single episode, unspecified; E78.5 Hyperlipidemia, unspecified; Z79.899 Other long term (current) drug therapy; Z80.0 Family history of malignant neoplasm of digestive organs; Z87.81 Personal history of (healed) traumatic fracture; Z68.30 Body mass index [BMI] 30.0-30.9, adult